=== PATIENT | female | born 1935 | race Caucasian/White ===

== ENCOUNTER → 2017-11-19 | Outpatient (CLI) | payer MEDICARE, OTHER | END | disposition home or self-care (01) | LOC: PCVCCLINIC 12:19 | PROVIDERS: ATTEND Internal Medicine Cardiovascular Disease | DX: I10 Essential (primary) hypertension (principal); I95.1 Orthostatic hypotension; R06.09 Other forms of dyspnea; R42 Dizziness and giddiness; Z88.0 Allergy status to penicillin; Z79.82 Long term (current) use of aspirin; Z79.899 Other long term (current) drug therapy | CPT/HCPCS: 93005; G0463 ==

== ENCOUNTER → 2018-01-25 | Outpatient (CLI) | payer MEDICARE, BC | END | disposition home or self-care (01) | LOC: PCVCIMAG 12:45 | DX: I65.23 Occlusion and stenosis of bilateral carotid arteries (principal); I25.10 Atherosclerotic heart disease of native coronary artery without angina pectoris; I10 Essential (primary) hypertension; E78.00 Pure hypercholesterolemia, unspecified; R51 Headache; I08.3 Combined rheumatic disorders of mitral, aortic and tricuspid valves; Z79.899 Other long term (current) drug therapy | CPT/HCPCS: 93005; 93306; 93880; G0463 ==

== ENCOUNTER → 2019-04-04 | Outpatient (CLI) | payer MEDICARE, BC | END | disposition home or self-care (01) | LOC: PCVCCLINIC 13:00 | PROVIDERS: ATTEND Internal Medicine Cardiovascular Disease | DX: I25.10 Atherosclerotic heart disease of native coronary artery without angina pectoris (principal); I10 Essential (primary) hypertension; E78.00 Pure hypercholesterolemia, unspecified; K21.9 Gastro-esophageal reflux disease without esophagitis; R06.09 Other forms of dyspnea; Z88.0 Allergy status to penicillin | CPT/HCPCS: 93005; G0463 ==

== ENCOUNTER → 2019-10-06 | Outpatient (CLI) | payer MEDICARE, BC ==
--- NOTE | 2019-10-06 14:47 | PCVCIMAG ---
APPROVED REPORT Study performed: 10/06/2019 14:09:53 EXAM: Comprehensive 2D, Doppler, and color-flow Echocardiogram Patient Location: Echo lab Status: routine BSA: 1.41 HR: 58 bpmBP: 128/60 mmHg Rhythm: Bradycardia Other Information Study Quality: Adequate Risk Factors: Cardiac Risk Factors: HTN, Hyperlipidemia Indications Dyspnea 2D Dimensions IVSd: 11.44 (7-11mm) LVDd: 32.44 mm PWd: 9.84 (7-11mm) LVDs: 21.09 (25-40mm) Left Atrium: 33.24 (27-40mm) Aortic Root: 28.50 mm LV Single Plane 4CH: 58.67 % LV Single Plane 2CH: 54.81 % Biplane EF: 56.3 % Volumes Left Atrial Volume (Systole) Single Plane 4CH: 40.62 mLSingle Plane 2CH: 53.38 mL LA ESV Index: 34.00 mL/m2 Aortic Valve AoV Peak Brandon.: 1.30 m/s AO Peak Gr.: 6.76 mmHgLVOT Max P.73 mmHg LVOT Max V: 0.83 m/s AI Vmax: 4.17 m/s AI Warren: 2.83 m/s2 AI PHT: 427.27 ms Mitral Valve MV Peak Gr.: 11.00 mmHg MV Mean Gr.: 4.03 mmHgE/A Ratio: 1.1 MV Decel. Time: 220.11 ms MV E Max Brandon.: 1.43 m/s MV A Brandon.: 1.36 m/s MV Max Brandon.: 1.66 m/s MV Mean Brandon.: 0.89 m/s MV VTI: 481.60 mm MV PHT: 84.74 ms MVA (PHT): 2.60 cm2 IVRT: 114.19 ms Pulmonary Valve PV Peak Brandon.: 0.75 m/sPV Peak Gr.: 2.23 mmHg Pulmonary Vein P Vein S: 0.26 m/sP Vein A: 0.33 m/s P Vein D: 0.39 m/sP Vein A Dur.: 141.9 msec P Vein S/D Ratio: 0.67 Tricuspid Valve TR Peak Brandon.: 3.59 m/s TR Peak Gr.: 51.62 mmHg Left Ventricle The left ventricle is normal size. There is normal LV segmental wall motion. There is normal left ventricular wall thickness. Left ventricular systolic function is normal. The left ventricular ejection fraction is within the normal range. LVEF is 55-60%. Grade I - abnormal relaxation pattern. Right Ventricle The right ventricle is normal size. The right ventricular systolic function is normal. Atria The left atrium size is normal. The right atrium size is normal. Aortic Valve The aortic valve is normal in structure. Mild to moderate aortic regurgitation. There is no aortic valvular stenosis. Mitral Valve Heavy posterior mitral annular calcification. Moderate mitral regurgitation. No evidence of mitral valve stenosis. Tricuspid Valve The tricuspid valve is normal in structure. Moderate tricuspid regurgitation with PAP of 58 mmHg. Pulmonic Valve The pulmonary valve is normal in structure. Mild pulmonic regurgitation. Great Vessels The aortic root is normal in size. IVC is normal in size and collapses >50% with inspiration. Pericardium There is no pericardial effusion. There is no pleural effusion. <Conclusion> The left ventricle is normal size. There is normal left ventricular wall thickness. Left ventricular systolic function is normal. Grade I - abnormal relaxation pattern. The right ventricle is normal size. The left atrium size is normal. Mild to moderate aortic regurgitation. Heavy posterior mitral annular calcification. Moderate mitral regurgitation. Moderate tricuspid regurgitation with PAP of 58 mmHg.
--- NOTE | 2019-10-06 19:21 | PCVCIMAG ---
EXAM: BILATERAL CAROTID DUPLEX INDICATION: Carotid Occlusive Disease. FINDINGS: Doppler Measurements (centimeters per second): RIGHT: Peak CCA-79, Peak ECA-96, Diastolic ICA-21, Peak ICA-116, ICA/CCA Ratio-1.5. LEFT: Peak CCA-86, Peak ECA-80, Diastolic ICA-21, Peak ICA-104, ICA/CCA Ratio-1.1. RIGHT CAROTID: The carotid bulb has moderate plaque. The proximal internal carotid artery shows <40% stenosis. The common carotid artery shows no significant stenosis. The external carotid artery shows no significant stenosis. LEFT CAROTID: The carotid bulb has moderate plaque. The proximal internal carotid artery shows <40% stenosis. The common carotid artery shows no significant stenosis. The external carotid artery shows no significant stenosis. Antegrade flow in both vertebral arteries. IMPRESSION: <40% stenosis of the right internal carotid artery with moderate plaque. <40% stenosis of the left internal carotid artery with moderate plaque. LOC:[id number]
== END | disposition home or self-care (01) ==
LOC: PCVCIMAG 12:50
PROVIDERS: ATTEND Internal Medicine Cardiovascular Disease
DX: I65.23 Occlusion and stenosis of bilateral carotid arteries (principal); I08.3 Combined rheumatic disorders of mitral, aortic and tricuspid valves; R06.00 Dyspnea, unspecified; I10 Essential (primary) hypertension; E78.00 Pure hypercholesterolemia, unspecified; K21.9 Gastro-esophageal reflux disease without esophagitis; I25.10 Atherosclerotic heart disease of native coronary artery without angina pectoris; E03.9 Hypothyroidism, unspecified; E78.5 Hyperlipidemia, unspecified; Z79.899 Other long term (current) drug therapy
CPT/HCPCS: 93005; 93306; 93880; G0463